=== PATIENT | female | born 2005 | race African-American/Black ===

== ENCOUNTER 2024-10-06 08:44 | Emergency (ER) | payer OTHER ==
[~2024-10-06] VITALS: Ht 149.9 cm; Wt 77.1 kg
[2024-10-06 08:55] VITALS: O2SAT 100
[2024-10-06] MEDS ORDERED: ACET-2708 MT (11:12)
[2024-10-06] MEDS ORDERED: PRED5TAB48 MT (11:12)
[2024-10-06 12:04] VITALS: BP 123/71; PULSE 94; RESP 18; TEMP 36.83628; O2SAT 99
== END 2024-10-06 12:07 | disposition home or self-care (01) ==
LOC: ER 09:31
DX: B34.9 Viral infection, unspecified (principal)
CPT/HCPCS: 81025; 99282